=== PATIENT | female | born 1975 | race Caucasian/White ===

== ENCOUNTER 2017-02-01 12:25 | Day surgery (SDC) | payer OTHER ==
[~2017-02-01] VITALS: Ht 162.6 cm; Wt 75.2 kg
[~2017-02-01 12:25] MED LIST: LANS30CA PO; LEVO25TA50 PO
[2017-02-01 14:02] VITALS: Ht 162.6 cm; Wt 75.2 kg
[2017-02-01] MEDS ORDERED: RANI300T3 PO (14:05)
[2017-02-01 14:06] VITALS: BP 119/66; PULSE 54; RESP 14
[2017-02-01] MEDS ORDERED: FENTAnyl 50 MCG/ML VIAL ONE (15:02)
[2017-02-01] MEDS ORDERED: MIDAZOLAM 1 MG/ML 2 ML INJ ONE ×2 (15:02)
[2017-02-01 15:17] VITALS: BP 113/63; PULSE 68; RESP 18
--- NOTE | 2017-02-01 15:47 | GILP ---
DATE OF PROCEDURE: 02/01/2017 NAME OF PROCEDURES: Colonoscopy and biopsy. SURGEON: Tosha Ortega MD PREOPERATIVE DIAGNOSIS: Abdominal pain. POSTOPERATIVE DIAGNOSES 1. Colonoscopy all the way to the cecum. 2. Abdominal sigmoid fold and biopsies were taken for histopathology. 3. Internal hemorrhoids. INDICATION FOR THE PROCEDURE: Ms. Soraya Cornell is a 41-year-old female patient who had righ t sided abdominal pain which was not responding to therapy. Abdominal ultrasound did not reveal any abnormality. The patient was scheduled for colonoscopy for further evaluation. The procedure and possible complications are well explained to the patient. She understood and cons ented to the procedure. DESCRIPTION OF PROCEDURE: Under the influence of fentanyl and Versed, the colonoscope was carefully introduced in the rectum and under direct vision, it was advanced all the way to the cecum. FINDINGS: The patient had an abdominal fold in the sigmoid colon and biopsies were taken for histop athology. The patient was noted to have internal hemorrhoids. She tolerated the procedure very well and there was no complication from the procedure. At the end of the procedure, she was awake with stable vital signs and she was discharged home to the care of h er family. IMPRESSION: 1. Colonoscopy all the way to the cecum. 2. Abdominal sigmoid fold and biopsies were taken for histopathology. 3. Internal hemorrhoids. PLAN: 1. Await histopathology report. 2. Bentyl 10 mg p.o. t.i.d. p.r.n. for pain. Dictated By: TOSHA MARIN/ROMAIN Conf#: [id number] DID#: [id number]
== END 2017-02-01 15:30 | disposition home or self-care (01) ==
LOC: GIL 12:25
PROVIDERS: ATTEND Internal Medicine Gastroenterology
DX: K64.8 Other hemorrhoids (principal)
CPT/HCPCS: 45378; 84703; 88305; J2250; J3010; Z7610